=== PATIENT | female | born 1965 | race Caucasian/White ===

== ENCOUNTER 2017-02-02 20:41 | Inpatient (IN) | payer OTHER ==
--- NOTE | ~2017-02-02 | HP ---
Unit #: [id number] #: [id number] Patient: SANA HO [id number] [place] [address] [id number] I MR#: [id number] NAME: SANA HO ROOM: [facility] Age: 51 Sex: F Admission Date: 02/02/2017 : 1965 Attending Physician: Mekhi Dumont M.D. Admitting Physician: Mekih Dumont M.D. Primary Care Physician: Primary Care Physician No HISTORY AND PHYSICAL HISTORY OF PRESENT ILLNESS Sana is a 51 year old admitted to [facility] because of her continued drug use. She shoots heroin. PAST MEDICAL HISTORY 1. Long history of polysubstance abuse to include IV heroin and benzodiazepines. She continues to use. 2. Hepatitis C. 3. High blood pressure. 4. History of withdrawal seizures. 5. GERD. PAST SURGICAL HISTORY 1. Knee. 2. Tubal ligation. ALLERGIES No known drug allergies. SOCIAL HISTORY Smokes 1 pack per day. Denies alcohol. Admits to a long history of poly-illicit substance abuse to include benzodiazepines and IV heroin. FAMILY HISTORY Medically noncontributory. REVIEW OF SYSTEMS She does not answer questions appropriately. She is belligerent and irritable. Nursing staff reports no nausea, vomiting or diarrhea. She has had no cough or increased temperature. CURRENT MEDICATIONS 1. Detox protocol. 2. Neurontin 600 mg q. 6 hours p.r.n. PHYSICAL EXAMINATION GENERAL: Alert, well-nourished, in no apparent distress. VITAL SIGNS: Blood pressure 100/60, heart rate 74, respirations 16, temperature 98.6. WEIGHT: 180. HEIGHT: 5 feet 9 inches. SKIN: Warm and dry without rash or lesion. HEENT: Normocephalic. TMs not viewed. Oral and nasal passages clear. Unit #: [id number] #: [id number] Patient: SANA HO Conjunctivae clear. PERRLA. EOMs intact. NECK: Supple without lymphadenopathy or thyromegaly. HEART: Regular rate and rhythm without murmur. LUNGS: Clear. ABDOMEN: Soft, nontender. : Not done. EXTREMITIES: No evidence of cyanosis, clubbing or edema. Moves all without focal deficit. NEUROLOGICAL: Unable to complete extended exam. She does move all extremities without focal deficit. Hand campground manager is equal and gait is normal. IMPRESSION Psychiatric admission. RECOMMENDATIONS PSYCHIATRIC: Per psychiatrist. MEDICAL: See no contraindications to participate in facility's activities. MEDICAL PROGNOSIS Good. MEDICAL CONDITION Stable. Dictated by... Vivi Curtis P.A.-C. for Iraj Bynum/terence TD: 02/03/2017 20:08 JOB #: [id number] HISTORY AND PHYSICAL Page 1 of 1 X Vivi Curtis X HISTORY AND PHYSICAL
--- NOTE | ~2017-02-02 | PA ---
Unit #: [id number] #: [id number] Patient: SANA HO [id number] [place] [address] [id number] I MR#: [id number] NAME: SANA HO ROOM: [facility] Age: 51 Sex: F Admission Date: 02/02/2017 : 1965 Date of Assessment: 02/03/2017 Attending Physician: Mekhi Dumont M.D. Admitting Physician: Mekhi Dumont M.D. Primary Care Physician: Primary Care Physician No PSYCHIATRIC ASSESSMENT IDENTIFYING INFORMATION The patient is a 51-year-old white female admitted for opioid and benzodiazepine detox. CHIEF COMPLAINT None given. INFORMANT Patient, reliability is fair. HISTORY OF PRESENT ILLNESS The patient is a 51-year-old white female admitted to the [address] [place] [address] with a history of heroin, Xanax, and methadone abuse. The patient reports previous treatment at this facility under the care of Dr. Dumont. She was last admitted to this facility in August of 2016. 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 She is currently in a state of significant dishevelment and appears to be in significant physical distress related to alcohol withdrawal. She is denying suicidal ideation at this time. For more complete history of present illness, please refer to previously dictated notes. PAST PSYCHIATRIC HISTORY Reviewed, no changes. PAST MEDICAL HISTORY Reviewed, no changes. MEDICATIONS The patient has been diagnosed with hepatitis C. MEDICATIONS None. ALLERGIES None. FAMILY HISTORY Reviewed, no changes. SOCIAL HISTORY Reviewed, no changes. Unit #: [id number] #: [id number] Patient: SANA HO MENTAL STATUS EXAMINATION Examination at this time reveals the patient to be a disheveled white female appearing somewhat older than her stated age of 51 years. She is in no apparent physical distress at the time of examination. She appears to be in moderate physical distress related to opioid withdrawal during evaluation. She is awake, alert, and oriented in all spheres. Her mood is dysphoric, her affect constricted. Speech is generally well coherent. There are no gross deficits in memory or cognition noted. Intelligence is judged to be in the average range based on fund of knowledge. The patient is cooperative throughout the interview. She is currently denying suicidal or homicidal ideation or psychotic features. Judgment and insight appear to be reasonably intact. ASSETS AND LIABILITIES The patient's assets are to be assessed. Liabilities: Lack of resources, homelessness, opioid use disorder, sedative-hypnotic disorder. TREATMENT PLAN The patient remains hospitalized for safety and stabilization. Routine detoxification protocol for opiates and sedative hypnotics has been initiated. Dr. Dumont will assume care of the patient on 02/04/2017. Dictated by... Tony Saez M.D. SHELLIE/adali TD: 02/03/2017 14:55 JOB #: [id number] PSYCHIATRIC ASSESSMENT Page 1 of 1 X Tony Saez MD X PSYCHIATRIC ASSESSMENT
--- NOTE | ~2017-02-02 | PN ---
Unit #: [id number] #: [id number] Patient: SANA HO [id number] [facility] [address] [place] [address] [id number] I MR#: [id number] NAME: SANA HO ROOM: [facility] Age: 51 Sex: F Admission Date: 02/02/2017 : 1965 Attending Physician: Mekhi Dumont M.D. Admitting Physician: Mekhi Dumont M.D. Primary Care Physician: Primary Care Physician Dominga ESPITIA PROGRESS NOTES DATE OF SERVICE: 02/07/2017 DISCUSSION Sana continues to have active opioid detox symptoms and appears diaphoretic and somewhat ill this morning. Her mood is anxious with a congruent affect. She is alert and fully oriented. Her memory and concentration are fair to good. Her thought processes are goal directed, and there is no active psychosis. ASSESSMENT Opioid dependence. PLAN We would extend the opioid detox protocol to accommodate her longer acting opioid. Dictated by... Iraj Odom/shai TD: 02/07/2017 11:46 JOB #: [id number] [facility] PROGRESS NOTES Page 1 of 1 X Mekhi Dumont MD X PROGRESS NOTE
--- NOTE | ~2017-02-02 | PN ---
Unit #: [id number] #: [id number] Patient: SANA HO [id number] [facility] [address] [place] [address] [id number] I MR#: [id number] NAME: SANA HO ROOM: [facility] Age: 51 Sex: F Admission Date: 02/02/2017 : 1965 Attending Physician: Mekhi Dumont M.D. Admitting Physician: Mekhi Dumont M.D. Primary Care Physician: Primary Care Physician Dominga ESPITIA PROGRESS NOTES DATE 02/08/2017 DISCUSSION Sana has decreased detox today and her mood is a little less labile. She is alert and fully oriented. Memory and concentration are fair to good. Thought processes were goal directed with no active psychosis. ASSESSMENT Opiate dependence. PLAN Continue with detox protocol. Dictated by... Iraj Odom/terence TD: 02/10/2017 22:45 JOB #: [id number] [facility] PROGRESS NOTES Page 1 of 1 X Mekhi Dumont MD PROGRESS NOTE
--- NOTE | ~2017-02-02 | PN ---
Unit #: [id number] #: [id number] Patient: SANA HO [id number] [facility] [address] [place] [address] [id number] I MR#: [id number] NAME: SANA HO ROOM: [facility] Age: 51 Sex: F Admission Date: 02/02/2017 : 1965 Attending Physician: Mekhi Dumont M.D. Admitting Physician: Mekhi Dumont M.D. Primary Care Physician: Dominga Primary Care Physician OMKAR PROGRESS NOTES DATE 02/05/2017 DISCUSSION Sana continues to have active detox symptoms today, including sweating, nausea and some insomnia. She is alert and fully oriented. Her memory and concentration are fair to good. Her thought processes are goal directed with no active psychosis and no suicidal ideation. ASSESSMENT Opiate dependence. PLAN Continue opiate detox protocol. Dictated by... Mekhi Dumont M.D. [facility]/ts TD: 02/08/2017 08:17 JOB #: [id number] [facility] PROGRESS NOTES Page 1 of 1 X Mekhi Dumont MD PROGRESS NOTE
--- NOTE | ~2017-02-02 | DS ---
Unit #: [id number] #: [id number] Patient: SANA HO [id number] [place] [address] [id number] I MR#: [id number] NAME: SANA HO ROOM: [facility] Age: 51 Sex: F Admission Date: 02/02/2017 : 1965 Discharge Date: 02/09/2017 Attending Physician: Mekhi Dumont M.D. Primary Care Physician: Primary Care Physician No DISCHARGE SUMMARY REASON FOR ADMISSION Sana is a 51-year-old woman who was admitted for polysubstance dependence including heroin, methadone and alprazolam. She had no suicidal ideation, intent, or plan and was admitted for stabilization. DIAGNOSTIC STUDIES LABORATORY RESULTS: Please see hospital chart. HOSPITAL COURSE The patient was admitted and placed on the opioid detox protocol. Sedative hypnotic detox was also provided. She had an extensive episode of detox including a need for extending her detox symptomatology due to the ongoing use of methadone. She arranged for a followup in the outpatient setting, but on the afternoon of her discharge, she went to the nurses' station reporting a "family emergency" and stated that she needed to be discharged sooner so that she could take care of this and would go to her placement on her own the following morning. DISCHARGE DIAGNOSES AXIS I: Opioid dependence with withdrawal, uncomplicated; benzodiazepine abuse. AXIS II: Diagnosis deferred. AXIS III: None acute. AXIS IV: AXIS V: DISCHARGE INSTRUCTIONS The patient will follow up with long-term care facility as identified by herself and her primary care physician. DISCHARGE DIAGNOSIS None. CONDITION AT DISCHARGE Fair. PROGNOSIS Fair. DIET AND ACTIVITY Ad liv. Unit #: [id number] #: [id number] Patient: SANA HO Dictated by... Mekhi Dumont M.D. [facility]/modl TD: 02/10/2017 00:32 JOB #: [id number] DISCHARGE SUMMARY Page 1 of 1 X Mekhi Dumont MD X DISCHARGE SUMMARY
[2017-02-07 12:28] LABS: BASOPHIL# 0.1 X10e3 (0-0.3); BASOPHIL% 0.9 % (0-2.5); DIFF IND NO; EOSINOPHIL# 0.1 X10e3 (0-0.7); EOSINOPHIL% 1.5 % (0.0-7.0); HEMATOCRIT 45.7 % (35.0-45.0); HEMOGLOBIN 15.2 gm/dL (12.0-16.0); MEAN CELL VOLUME 81.8 FL (83-96); MEAN CORPUSCULAR HEMOGLOBIN 27.3 PG (28-34); MEAN CORPUSCULAR HGB CONC 33.4 g/dL (30-36); MEAN PLATELET VOLUME 8.2 FL (6.5-11.5); MONOCYTE# 0.4 X10e3 (0-1.0); MONOCYTE% 6.6 % (3.0-12.0); PLATELET COUNT 340 X10e3 (140-420); RED BLOOD COUNT 5.58 X10e (3.90-5.30); RED CELL DISTRIBUTION WIDTH 14.1 % (11.0-15.5); WHITE BLOOD COUNT 6.5 X10e3 (4.0-10.5)
[2017-02-07 12:44] LABS: ALBUMIN SERUM 4.4 g/dL (3.5-5.0); BILIRUBIN,TOTAL 0.7 mg/dL (0.2-2.0); BUN/CREATININE RATIO 24.44; CALCIUM SERUM 9.8 mg/dL (8.4-10.2); CREATININE SERUM 0.9 mg/dL (0.6-1.4); GLOM FILT RATE Estimated 75.1 mL/min (>60); POTASSIUM 4.2 mmol/L (3.5-5.1)
[2017-02-07 16:34] LABS: AMPHETAMINE NEG (NEG); BARBITURATES NEG (NEG); BENZODIAZEPINES POS (NEG); COCAINE POS (NEG); MARIJUANA NEG (NEG); OPIATES NEG (NEG); TRICYCLIC ANTIDEPRESSANTS NEG (NEG); U METHADONE NEG (NEG)
[2017-02-12 14:10] LABS: HA AB IGM (HEPPAN) Nonreactive (()); HB CORE AB IGM (HEPPAN) Nonreactive (Nonreactive); HB S AG (HEPPAN) Nonreactive (Nonreactive); HEP C AB (HEPPAN) Reactive (Nonreactive)
== END 2017-02-09 12:55 | disposition home or self-care (01) | DRG 897 ==
LOC: P1E 20:41
PROVIDERS: Psychiatry & Neurology Psychiatry
PROC: HZ2ZZZZ Detoxification Services for Substance Abuse Treatment (ICD-10-PCS; principal; 2017-02-02)
DX: F11.20 Opioid dependence, uncomplicated (principal); F13.20 Sedative, hypnotic or anxiolytic dependence, uncomplicated; Z59.0 Homelessness; B19.20 Unspecified viral hepatitis C without hepatic coma; K21.9 Gastro-esophageal reflux disease without esophagitis; F17.210 Nicotine dependence, cigarettes, uncomplicated
CPT/HCPCS: 80053; 80074; 80307; 84703; 85025; 86592; 87522; J2405; J2550

== ENCOUNTER 2017-06-01 15:56 | Inpatient (IN) | payer OTHER ==
[~2017-06-01] VITALS: Ht 175.3 cm; Wt 81.6 kg
--- NOTE | ~2017-06-01 | HP ---
Unit #: [id number] #: [id number] Patient: SANA HO [id number] [place] [address] [id number] I MR#: [id number] NAME: SANA HO ROOM: [facility] Age: 51 Sex: F Admission Date: 06/01/2017 : 1965 Attending Physician: Mekhi Dumont M.D. Admitting Physician: Mekhi Dumont M.D. Primary Care Physician: Primary Care Physician No HISTORY AND PHYSICAL HISTORY OF PRESENT ILLNESS Sana is a 51-year-old admitted to [facility] because of her continued drug use. She is detoxing. She has had other admissions to this facility for treatment of the same. PAST MEDICAL HISTORY 1. Long history of polysubstance abuse to include IV heroin and benzodiazepines. 2. Hepatitis C. 3. High blood pressure. 4. History of withdrawal seizures. 5. GERD. PAST SURGICAL HISTORY 1. Knee. 2. Tubal ligation. ALLERGIES No known drug allergies. SOCIAL HISTORY Smokes one pack per day. Denies alcohol. Admits to a long history of poly illicit substance abuse to include benzodiazepines and IV heroin. FAMILY HISTORY Medically noncontributory. REVIEW OF SYSTEMS CONSTITUTIONAL: No fever or chills. HEENT: Denies any sore throat, ear pain or runny nose. CARDIOVASCULAR: Denies chest pain, irregular heart rhythm or palpitations. CHEST: Denies shortness of breath or cough. No hemoptysis. GASTROINTESTINAL: Denies nausea, vomiting, diarrhea or chronic constipation. ENDOCRINE: Denies history of increased thirst or urination. No recent significant weight loss or gain. GENITOURINARY: Denies dysuria, frequency, or hematuria. SKIN: Denies any rashes. HEMATOLOGIC: Denies history of increased bleeding or bruising. MUSCULOSKELETAL: Denies any hot, swollen joints. No generalized muscle pain. NEUROLOGIC: Denies problems with vision or speech. No frequent, severe Unit #: [id number] #: [id number] Patient: SANA HO headaches. No numbness, tingling or weakness in any extremities. Denies loss of bladder or bowel control. CURRENT MEDICATIONS Detox protocol. PHYSICAL EXAMINATION GENERAL: Alert, well-nourished, in no apparent distress. VITAL SIGNS: Blood pressure 120/72, heart rate 80, respirations 16, temperature 98.6. WEIGHT: 180. HEIGHT: 5 foot 9 inches. SKIN: Warm and dry without rash or lesion. HEENT: Normocephalic. TMs not viewed. Oral and nasal passages clear. Conjunctivae clear. Pupils equal, round and reactive to light and accommodation. Extraocular movements intact. NECK: Supple without lymphadenopathy or thyromegaly. HEART: Regular rate and rhythm without murmur. LUNGS: Clear. ABDOMEN: Soft, nontender. : Not done. EXTREMITIES: No evidence of cyanosis, clubbing or edema. Moves all extremities without focal deficit. NEUROLOGICAL: Grossly within normal limits. Cranial Nerves: II: Visual angulo are intact. III, IV AND : Extraocular movements are intact. Pupils are equal, round and reactive to light. V: Facial sensation is grossly normal. VII: Facial movements and expression are normal. VIII: Auditory acuity grossly intact. IX, X: Uvula is midline. Phonation is normal. XI: Patient shrugs shoulders and turns head normally. XII: Tongue protrudes in the midline. Sensory and Motor Function: Sensory and motor sensation is grossly normal. Motor: moves all extremities well. Coordination: Gait is normal. Deep Tendon Reflexes: Intact. IMPRESSION Psychiatric admission. RECOMMENDATIONS PSYCHIATRIC: Per psychiatrist. MEDICAL: I see no contraindications to participating in facility's activities. MEDICAL PROGNOSIS Good. MEDICAL CONDITION Stable. Dictated by... Vivi Curtis P.A.-C. for Vandana Dorantes M.D. Unit #: [id number] #: [id number] Patient: SANA HO KAITLYNN/kimber TD: 06/02/2017 21:01 JOB #: [id number] HISTORY AND PHYSICAL Page 1 of 1 X Vivi Curtis HISTORY AND PHYSICAL
--- NOTE | ~2017-06-01 | PN ---
Unit #: [id number] #: [id number] Patient: SANA HO [id number] [facility] [address] [place] [address] [id number] I MR#: [id number] NAME: SANA HO ROOM: [facility] Age: 51 Sex: F Admission Date: 06/01/2017 : 1965 Attending Physician: Mekhi Dumont M.D. Admitting Physician: Mekhi Dumont M.D. Primary Care Physician: Primary Care Physician Dominga ESPITIA PROGRESS NOTES DATE 06/04/2017 DISCUSSION Sana is less irritable today. She still complains of multiple detox symptoms and of increased hunger. She is alert and fully oriented with no psychosis and no suicidal ideation. ASSESSMENT 1. Opiate dependence. 2. Amphetamine abuse. PLAN Continue current treatment plan and provide larger portions at the patient's request. Dictated by... Mekhi Dumont M.D. [facility]/terence TD: 06/08/2017 22:13 JOB #: [id number] [facility] PROGRESS NOTES Page 1 of 1 X Mekhi Dumont MD PROGRESS NOTE
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
[2017-06-02 10:10] LABS: AMPHETAMINE NEG (NEG); BARBITURATES NEG (NEG); BENZODIAZEPINES NEG (NEG); COCAINE POS (NEG); MARIJUANA NEG (NEG); OPIATES POS (NEG); TRICYCLIC ANTIDEPRESSANTS NEG (NEG); U METHADONE NEG (NEG)
== END 2017-06-05 16:34 | disposition home or self-care (01) | DRG 897 ==
LOC: P1E 18:01
PROVIDERS: Psychiatry & Neurology Psychiatry
PROC: HZ2ZZZZ Detoxification Services for Substance Abuse Treatment (ICD-10-PCS; principal; 2017-06-01)
DX: F11.23 Opioid dependence with withdrawal (principal); F39 Unspecified mood [affective] disorder; I10 Essential (primary) hypertension; F13.10 Sedative, hypnotic or anxiolytic abuse, uncomplicated; J44.9 Chronic obstructive pulmonary disease, unspecified; Z86.19 Personal history of other infectious and parasitic diseases; K21.9 Gastro-esophageal reflux disease without esophagitis; Z98.51 Tubal ligation status; F17.200 Nicotine dependence, unspecified, uncomplicated
CPT/HCPCS: 80307; J2550